=== PATIENT | female | born 1975 | race Caucasian/White ===

== ENCOUNTER → 2022-10-27 12:52 | Outpatient (BNVA) | payer OTHER, SELFPAY | PROVIDERS: PCP Family Medicine; Referring Provider Family Medicine; Visit Provider Surgery | DX: K42.9 Umbilical hernia without obstruction or gangrene (principal) | CPT/HCPCS: 99202 ==

== ENCOUNTER → 2022-11-03 12:55 | Outpatient (BNVA) | payer OTHER, SELFPAY | PROVIDERS: PCP Family Medicine; Visit Provider Internal Medicine Cardiovascular Disease | DX: Z01.810 Encounter for preprocedural cardiovascular examination (principal); R07.9 Chest pain, unspecified | CPT/HCPCS: 99202 ==

== ENCOUNTER → 2022-11-07 07:51 | Outpatient (REF) | payer OTHER, SELFPAY ==
--- NOTE | 2022-11-07 07:54 | CA_ITS ---
Acquisition Time: 2022-11-07 08:08:43 Total Exercise Time: 00:08:23 Test Indications: CP Medications: SEE H Protocol: MARY Max HR: 162 BPM 92% of Pred: 175 BPM Max BP: 150/088 mmHG Max Work Load: 10.1 METS Exercise stress test with exercise 8 min 23 sec of Mray protocol, achieving 91% MPHR, with fatigue and request to stop, with 3-4/10 chest pressure at baseline that changed to 5/10 with exercise then back to 3-4/10 in recovery, with isolated PACs, with normotensive response to exercise, with artifact during exercise, with borderline ST changes in recovery - can't exclude ischemia. Will ordrer stress echocardiogram for further evaluation. Test reviewed with Dr Spann. Referred By: Alek Fonseca Overread By: KATHIA GREENWOOD
== END ==
LOC: HO.CARD 07:51
PROVIDERS: PCP Family Medicine; Visit Provider Internal Medicine Cardiovascular Disease
DX: R07.9 Chest pain, unspecified (principal)
CPT/HCPCS: 93017

== ENCOUNTER → 2022-11-18 12:59 | Outpatient (REF) | payer OTHER, SELFPAY ==
--- NOTE | 2022-11-18 13:44 | CA_ITS ---
Transthoracic Echocardiogram Patient (Last, First, Middle): Freda Isaac, Gender: Female Date of : 1975 Age: 47 Procedure Date: 11/18/2022 Procedure Type: Transthoracic Echocardiogram Location: OP Height: 160.02 cm Weight: 81.65 kg BSA: 1.85 m2 Heart Rate: bpm BP: 122 / 60 mmHg Product Scientist: Referring MD: Alek Fonseca MD Symptoms: R06.02 - Shortness of breath Study Quality: Adequate ECG Rhythm: Sinus Conclusions: - Normal left ventricular size and systolic function. The visually estimated ejection fraction is between 55-60%. There is no evidence of regional wall motion abnormalities. Diastolic function is normal for age. Borderline increased LV wall thickness. - Normal right ventricular cavity size and systolic function. - No significant valvular or pericardial pathology. Findings Left Ventricle Normal left ventricular size and systolic function. The visually estimated ejection fraction is between 55-60%. There is no evidence of regional wall motion abnormalities. Diastolic function is normal for age. Borderline increased LV wall thickness. Right Ventricle Normal right ventricular cavity size and systolic function. Atria Both atria are normal in size. Aortic Valve There is a normal trileaflet aortic valve. There is no aortic valve stenosis. There is no aortic valve regurgitation. Mitral Valve The mitral valve appears normal. There is no mitral valve regurgitation. There is no mitral valve stenosis. Pulmonic Valve Normal pulmonic valve structure and function. There is trace pulmonic valve regurgitation. Tricuspid Valve Normal tricuspid valve structure and function. There is trace tricuspid valve regurgitation. Normal right atrial pressure. There is no evidence of pulmonary hypertension. Great Vessels All visible segments of the aorta are normal in size. The visualized portions of the pulmonary artery and branches are normal. Venous The inferior vena cava is normal in size and collapses greater than 50% with inspiration. Pericardium/Pleural There is no evidence of pericardial effusion. Prior Study Comparison No prior study available for comparison. Measurements 2D Linear Measurements IVSd: 0.87 0.6-0.9/0.6-1.0 cm LVIDd: 4.86 3.9-5.3/4.2-5.9 cm LVIDd Index: 2.63 2.4-3.2/2.2-3.1 cm/m2 LVIDs: 3.00 2.0-3.6 cm LVPWd: 0.91 0.7-1.1 cm Ao Root: 2.80 2.1-3.5 cm LA Diam: 3.30 2.7-3.8/3.0-4.0 cm LAIDs Index: 1.78 1.5-2.3 cm/m2 LV Mass: 185.08 67-162/88-224 g LV Mass Index: 100.04 43-95/49-115 g/m2 LVOT Diam: 2.00 3.0+(-)1.3 cm 2D Systolic Function EF 4C: 64.20 >55% EF 2C: 56.70 >55% EF BiP: 61.00 >55% Mitral Valve MV Pk E: 0.77 MV PK A: 0.51 MV Decel Time: 187.00 E/A: 1.50 E'Lateral: 14.70 E'Medial: 9.03 E/E' Med: 8.50 E/E' Lat: 5.20 PHT: 55.00 MVA PHT: 4.00 Decel [place]: 4.13 Aortic Valve AoV Pk Hank: 1.32 AoV Mn Hank: 0.89 AoV VTI: 0.30 AoV Pk Grad: 7.00 Aov Mn Grad: 4.00 [place] Cont.VTI: 2.56 LVOT LVOT Pk Hank: 1.16 LVOT Mn Hank: 0.67 LVOT VTI: 0.24 LVOT Pk Grad: 5.00 LVOT Mn Grad: 2.00 LVOT Diam: 2.00 LVOT Area: 3.14 Diastolic Function MV Pk E: 0.77 MV Pk A: 0.51 E/A: 1.50 E'Medial: 9.03 E/E' Med: 8.50 E' Laterial: 14.70 E/E' Lat: 5.20 Right Ventricle TAPSE (mm): 27.00 TVS' Hank: 12.00 Tricuspid Valve TR Pk Hank: 2.06 TR Pk Grad: 17.00 RA Press: 3.00 RVSP: 20.00 Great Vessels Aorta Ao Root-2D: 2.80 2.0-3.7 cm Ao Asc: 2.70 2.1-3.4 cm Pulmonary Valve PV Pk Hank: 0.92 Peak PV Grad: 3.00 Updated in Other Vendor System with Status of Final Misael Elliott MD electronically signed on 11/20/2022 1:54:20 PM with status of Final
== END ==
LOC: HO.CARD 12:59
PROVIDERS: PCP Family Medicine; Visit Provider Internal Medicine Cardiovascular Disease
DX: R06.02 Shortness of breath (principal)
CPT/HCPCS: 93306

== ENCOUNTER 2022-11-20 21:01 | Emergency (ER) | payer OTHER, SELFPAY ==
--- NOTE | ~2022-11-20 | XR_ITS ---
EXAMINATION: XR CHEST CLINICAL INFORMATION: Chest pain. COMPARISON: None available. TECHNIQUE: Frontal view of the chest was obtained. FINDINGS: The lungs are well-expanded and clear of acute process. The heart size and pulmonary vascularity is normal. No gross bony abnormality seen. XR/XR chest 1V IMPRESSION: Unremarkable chest examination.
[2022-11-20 21:04] VITALS: BP 152/71; PULSE 82; RESP 18; TEMP 36.1; O2SAT 99; BMI 31.5
--- NOTE | 2022-11-20 21:06 | ECG_ITS ---
Test Reason : chest pain Blood Pressure : / mmHG Vent. Rate : 074 BPM Atrial Rate : 074 BPM P-R Int : 156 ms QRS Dur : 078 ms QT Int : 390 ms P-R-T Axes : 037 034 029 degrees QTc Int : 432 ms Normal sinus rhythm Normal ECG No previous ECGs available Referred By: Generic ED Physician Electronically Signed By:Misael Elliott
[2022-11-20 21:50] LABS: Anion Gap 13 (12-20); Blood Urea Nitrogen 9 mg/dL (9-16); Calcium 9.1 mg/dL (8.4-10.2); Carbon Dioxide 24 mmol/L (22-29); Chloride 106 mmol/L (96-108); Creatinine Clr Calc Pharmacy 105.1; Estimated Glomerular Filt Rate > 60; Glucose Random 99 mg/dL (60-115); Potassium 3.7 mmol/L (3.3-5.1); Sodium 139 mmol/L (135-145)
[2022-11-20 23:30] VITALS: BP 130/87; PULSE 81; RESP 12; O2SAT 99
--- NOTE | 2022-11-20 23:32 | ED.CHESTPAIN ---
HPI - Chest Pain General Chief Complaint: Chest Pain Stated Complaint: chest pain Time Seen by Provider: 11/20/22 23:16 Source: patient and family Mode of arrival: ambulatory Limitations: no limitations History of Present Illness HPI narrative: This is a 47-year-old female came in for evaluation of chest pain. 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 No shortness of breath, no coughing, no fever, no chills, no recent travel, no lower extremity swelling, patient was seen at [facility] ER on 10/13 had a negative CTA for pulmonary embolism or any other intrathoracic pathology. Related Data Home Medications Medication Instructions Recorded Confirmed omeprazole 20 mg capsule,delayed 20 mg PO DAILY 10/27/22 11/03/22 release multivitamin (Daily Multi-Vitamin 1 tab PO DAILY 11/03/22 11/03/22 tablet) Allergies Allergy/AdvReac Type Severity Reaction Status Date / Time Seasonal Allergies Allergy Mild Unknown Verified 10/27/22 13:10 Review of Systems Review of Systems: All other systems are reviewed and are negative Constitutional: Reports as per HPI and Reports no additional constitutional complaints Eyes: Reports as per HPI and Reports no additional eye complaints Reports system reviewed and no additional complaints, except as documented Cardiovascular: Reports as per HPI and Reports no additional cardiovascular complaints Respiratory: Reports as per HPI and Reports no additional respiratory complaints Gastrointestinal: Reports as per HPI and Reports no additional gastrointestinal complaints Genitourinary: Reports no additional female genitourinary complaints Musculoskeletal: Reports no additional musculoskeletal complaints Skin/Breast: Reports system reviewed and no additional complaints, except as docu Psychiatric: Reports no additional psychiatric complaints Endocrine: Reports no additional endocrine complaints Hematologic/Lymphatic: Reports no additional hematologic/lymphatic complaints Allergic/Immunologic: Reports no additional allergic/immunologic complaints Reports system reviewed and no additional complaints, except as documented and Reports Abnormal speech present [facility] Family History Family History Maternal Aunt Ovarian cancer Father CAD (coronary artery disease) Social History Social History Alcohol intake: current Alcohol intake frequency: holidays/special occasions only Patient Tobacco Use Status: Never used Tobacco Smoked in Last 30 Days: No Use of substances other than those prescribed or required for medical reasons: No Advance Directives: No Advance Directives Information Provided: No Patient : No Physical Exam Vital Signs: Vital Signs: Last Vital Signs Temp 97 F 11/20/22 21:04 Pulse 81 11/20/22 23:30 Resp 12 11/20/22 23:30 BP 130/87 11/20/22 23:30 Pulse Ox 99 11/20/22 23:30 O2 Del Method Room Air 11/20/22 23:30 BMI result Body Mass Index 31.5 Vital signs have been reviewed as appeared to be correct. Blood pressure normal. Heart rate normal. Respiration rate normal. Temperature normal. Oxygen saturation normal. Appearance: Alert. Oriented X3. No acute distress. Head: Normal external exam. Normocephalic. Atraumatic. No Stewart signs noted. No raccoon eyes noted Eyes: PERRLA. EOMI. Conjunctiva and sclera normal. Eyelids normal. ENT: TM's Normal. Pharynx normal. Uvula midline. Moist mucous membranes. No trismus noted. No drooling noted. No muffled voice noted. Neck: Normal inspection. Neck supple. FROM. No adenopathy. Thyroid Normal. No meningeal signs. No neck mass noted. CVS: Normal heart rate and rhythm. Heart sound normal. No murmurs noted. Pulses normal throughout. Respiratory: No respiratory distress. Painless inspiration. Breath sounds normal. No wheezes/rales/rhonchi noted. Reproducible chest wall tenderness to the left costochondral junction, no step-off, no deformity. No accessory muscle usage noted or decreased air movement noted. Abdomen: Soft and nontender. Bowel sounds normal in all 4 quadrants. No distention noted. No organomegaly noted. No visible injury noted. Back: No CVA tenderness. Full range of motion noted. Skin: Skin warm and dry. Normal skin color. Normal skin turgor. No rashes/lesions/lacerations noted. Extremities: No lower extremity edema. Extremities exhibit normal range of motion. Extremities nontender. Neuro: Oriented X 3. Cranial nerve exam: II-XII are grossly intact No motor deficit. No sensory deficit. Reflexes normal. Course Course Course Narrative: 47-year-old female history of chest pain for the past 2 months, patient in the process of Cardiology evaluation schedule for stress test and 3 days, had previous ED workup for chest pain which was unremarkable including CT of the chest at [facility] on 10/13/2022. For however presence of reproducible tenderness to the left costochondral margin making costochondritis is a favorable diagnosis. Reevaluation(s) Reevaluation #1: Patient has elevated D-dimer, patient is refusing CT angio of the chest to rule out pulmonary embolism risk and benefit were discussed with the patient not limited to but including , still leaving against medical advise patient was advised to return if chest pain is getting worse or developing any other new symptoms. Time: 02:42 Medical Decision Making Differential Diagnosis Differential Diagnoses: The differential diagnosis associated with the presentation includes (Pneumonia, pneumothorax, pulmonary embolism, ACS, rib fracture, chest wall pain, costochondritis, electrolyte abnormalities, severe anemia.) Admission/Observation Consideration of admission/observation: Escalation of care including admission/observation considered Lab Data MDM Lab Attestation statement: I reviewed the patient's lab results. 11/20/22 21:33 11/20/22 21:33 Labs: Lab Results 11/20/22 11/20/22 11/20/22 Range/Units 21:33 21:33 21:33 WBC 7.7 (4.8-10.8) X10*3/uL RBC 4.52 (4.20-5.50) X10*6/uL Hgb 11.5 L (12.0-16.0) g/dl Hct 36.0 L (37.0-47.0) % MCV 79.6 L (80.0-98.0) fL MCH 25.4 L (27.0-33.0) pg MCHC 31.9 (31.0-35.0) g/dl RDW 13.7 (11.0-16.0) % Plt Count 289 (160-400) X10*3/uL MPV 10.0 (9.4-12.3) fL Immature Gran % (Auto) 0.3 (0.0-0.4) % Neut % (Auto) 54.6 (45-73) % Lymph % (Auto) 32.1 (20-40) % [place] % (Auto) 10.8 (2-11) % Eos % (Auto) 1.9 (0-4) % Baso % (Auto) 0.3 (0-2) % Lymph # (Auto) 2.5 (1.2-4.9) X10*3/uL [place] # (Auto) 0.8 (0.1-1.2) X10*3/uL Eos # (Auto) 0.2 (0.0-0.4) X10*3/uL Baso # (Auto) 0.0 (0.0-0.2) X10*3/uL Abs Immat Gran (auto) 0.02 (0.00-0.03) X10*3/uL Absolute Neuts (auto) 4.2 (2.0-8.3) x10*3/uL Absolute Nucleated RBC 0.000 (0.0-0.012) X10*3/uL Nucleated RBC % (auto) 0.0 (0.0-0.2) /100WBC D-Dimer High Sensitivty NG/ML Sodium 139 (135-145) mmol/L Potassium 3.7 (3.3-5.1) mmol/L Chloride 106 (96-108) mmol/L Carbon Dioxide 24 (22-29) mmol/L Anion Gap 13 (12-20) BUN 9 (9-16) mg/dL Creatinine 0.68 (0.5-1.4) mg/dL Estim Creat Clear Calc 105.1 Estimated GFR > 60 Random Glucose 99 (60-115) mg/dL Calcium 9.1 (8.4-10.2) mg/dL Troponin I High Sens < 2.7 (<3.5-17.0) ng/L 11/21/22 11/21/22 Range/Units 00:34 00:34 WBC (4.8-10.8) X10*3/uL RBC (4.20-5.50) X10*6/uL Hgb (12.0-16.0) g/dl Hct (37.0-47.0) % MCV (80.0-98.0) fL MCH (27.0-33.0) pg MCHC (31.0-35.0) g/dl RDW (11.0-16.0) % Plt Count (160-400) X10*3/uL MPV (9.4-12.3) fL Immature Gran % (Auto) (0.0-0.4) % Neut % (Auto) (45-73) % Lymph % (Auto) (20-40) % [place] % (Auto) (2-11) % Eos % (Auto) (0-4) % Baso % (Auto) (0-2) % Lymph # (Auto) (1.2-4.9) X10*3/uL [place] # (Auto) (0.1-1.2) X10*3/uL Eos # (Auto) (0.0-0.4) X10*3/uL Baso # (Auto) (0.0-0.2) X10*3/uL Abs Immat Gran (auto) (0.00-0.03) X10*3/uL Absolute Neuts (auto) (2.0-8.3) x10*3/uL Absolute Nucleated RBC (0.0-0.012) X10*3/uL Nucleated RBC % (auto) (0.0-0.2) /100WBC D-Dimer High Sensitivty 2263 NG/ML Sodium (135-145) mmol/L Potassium (3.3-5.1) mmol/L Chloride (96-108) mmol/L Carbon Dioxide (22-29) mmol/L Anion Gap (12-20) BUN (9-16) mg/dL Creatinine (0.5-1.4) mg/dL Estim Creat Clear Calc Estimated GFR Random Glucose (60-115) mg/dL Calcium (8.4-10.2) mg/dL Troponin I High Sens < 2.7 (<3.5-17.0) ng/L Independent Interpretation I performed an independent interpretation of an: EKG (Normal sinus rhythm at 74 beats per minute, normal axis deviation, normal intervals, no ST-T changes.) and Plain X-Ray (Chest: No acute intrathoracic pathology.) Radiology Impression Discussion of test interpretation with radiology: I have reviewed the radiologist's reading. Scores Heart Score History: -0- slightly suspicious ECG: -0- normal Age: -0- < or = 45 Risk factory: -0- no risk factors known Troponin: -0- < or = normal limit Score: 0 Risk: 1.7% Discharge Plan Discharge Clinical Impression: Chest pain, D-dimer, elevated Patient Disposition: Left Against Medical Advice Instructions: Costochondritis (ED) Prescriptions: No Action omeprazole 20 mg capsule,delayed release(DR/EC) 20 mg PO DAILY multivitamin [Daily Multi-Vitamin] Tablet 1 tab PO DAILY Referrals: Long Baker MD [Primary Care Provider] - Alek Fonseca MD [Physician] -
[2022-11-20 23:35] VITALS: PULSE 89
--- NOTE | 2022-11-20 23:38 | PC.NURSE ---
pt reported she was seen by her motel front desk clerk on monday, currently been seen for recurring left upper chest pain. pt also reported she failed her stress test
--- NOTE | 2022-11-21 00:36 | MHC.EDTECH ---
labs drawn VSS
[2022-11-21 01:09] LABS: Troponin-I High Sensitivity < 2.7 ng/L (<3.5-17.0)
--- NOTE | 2022-11-21 02:30 | PC.NURSE ---
pt declined iv abdirahman wants to go home. Dr. cardenas
--- NOTE | 2022-11-21 03:10 | PC.NURSE ---
pt d/c, denies any increasing chest pain, encouraged to discuss lab values with pcp
== END 2022-11-21 03:09 | disposition left against medical advice (07) ==
PROVIDERS: Emergency Provider Emergency Medicine; PCP Family Medicine
DX: R07.9 Chest pain, unspecified (principal); R79.1 Abnormal coagulation profile
CPT/HCPCS: 36415; 71045; 80048; 84484; 85025; 85379; 93005; 99283; 99284

== ENCOUNTER → 2022-11-24 10:56 | Outpatient (REF) | payer OTHER, SELFPAY ==
--- NOTE | 2022-11-24 10:57 | CA_ITS ---
Acquisition Time: 2022-11-24 11:27:34 Total Exercise Time: 00:09:15 Test Indications: CHEST PAIN Medications: Protocol: MARY Max HR: 173 BPM 98% of Pred: 175 BPM Max BP: 156/064 mmHG Max Work Load: 10.5 METS Exercise stress test with exercise 9 min 15 sec of Mary protocol achieving 100% MPHR, with report of mild tightness in left chest region that resolved quickly in recovery, with isolated PACs, with normotensive response to exercise, with EKG changes that meet criteria for ischemia: inferior/ lateral leads that improves in recovery. Echo images obtained by tech at rest and immediately post peak exercise. Definity contrast used, Test reviewed with Dr Spann. Referred By: Ludivina Chappell Overread By: LUDIVINA CHAPPELL
== END ==
LOC: HO.CARD 10:56
PROVIDERS: PCP Family Medicine; Visit Provider Nurse Practitioner Family
DX: R07.9 Chest pain, unspecified (principal); R06.02 Shortness of breath; R94.39 Abnormal result of other cardiovascular function study
CPT/HCPCS: 93350; Q9957

== ENCOUNTER 2022-12-01 09:01 | Outpatient (AMB) | payer OTHER, SELFPAY ==
--- NOTE | 2022-12-01 09:09 | A.OFFVIS_ITS ---
Intake Vital Signs 12/01/22 09:10 Height 5 ft 3 in Weight 178 lb 9.191 oz BMI 31.6 BP 130/80 Blood Pressure Location Lt brachial Position Sitting Pulse 65 Pulse Oximetry (%) 98 Intake Visit Reasons: 4 week follow up Intake Note: 4 week f/u Workers Compensation Consultant Required: No Allergies Seasonal Allergies Allergy (Mild, Verified 12/01/22 09:22) Unknown Medication List - Last Reconciled 12/01/22 by CY Saunders multivitamin (Daily Multi-Vitamin tablet) 1 tab PO DAILY omeprazole 20 mg PO DAILY HPI 4 week follow up HPI Details Freda is a 47-year-old female with past medical history of obesity, anxiety who recently reported chest discomfort and underwent an echocardiogram and stress test and now presents for follow-up. Today she reports that her prior chest discomfort has resolved. She tells me she had been getting it for a few weeks but it is no longer present. She denies shortness of breath, dizziness, presyncope, syncope, PND, orthopnea or edema. She has been trying to increase her physical activity by going to the gym which she tolerates without symptoms. She does report high stress with her daughter being ill at home. She now feels that stress may be contributing to her symptoms. She is also fearful as her father had fatal KS in his 60s. [facility] Family History Maternal Aunt Ovarian cancer Father CAD (coronary artery disease) Social History Alcohol intake: current Alcohol intake frequency: holidays/special occasions only Patient Tobacco Use Status: Never used Tobacco Review of Systems Const All systems reviewed & are unremarkable except as noted in HPI and below ENT Reports dizziness Card Denies chest pain, Denies chest pain at rest, Denies chest pain with activity, Denies rapid heart rate, Denies pedal edema, Denies edema, Denies leg edema, Denies lightheadedness, Denies palpitations, Denies dyspnea, Denies dyspnea on exertion and Denies orthopnea Resp Denies cough, Denies dyspnea and Denies dyspnea on exertion GI Denies hematochezia and Denies change in stool character Musc Denies abnormal gait, Reports limited range of motion, Reports muscle cramps, Denies muscle weakness, Denies numbness, Denies radiating pain into limb, Denies stiffness and Denies tingling Neuro Denies abnormal gait, Reports dizziness, Denies numbness and Denies tingling Endo Denies palpitations Physical Exam Vital Signs: Last Vital Signs Pulse 65 12/01/22 09:10 BP 130/80 12/01/22 09:10 Pulse Ox 98 12/01/22 09:10 BMI result Body Mass Index 31.6 Const General: cooperative, healthy appearing, comfortable and no acute distress Orientation/consciousness: patient oriented x3 Neck Neck: Yes normal visual inspection Resp Effort & Inspection: normal respiratory effort Auscultation: clear to auscultation bilaterally, no crackles, no rales, no rhonchi and no wheezes Cardio Jugular venous distension: no JVD Rate: regular rate Rhythm: regular rhythm Heart sounds: S1 normal heart sound present, S2 normal heart sound present, no gallops, no murmurs and no rubs Skin General skin exam: no rashes or lesions noted Neuro General: patient oriented x3 Extrem General: Yes normal to inspection Psych Appearance: grossly normal Mental Status: mental status grossly normal Speech and movement: Normal speech and movement present Office Procedures EKG Details: today, read by me, normal sinus rhythm, no acute ST or T-wave abnormalities, rate 65, QTC 426 milliseconds [id number], Complete Assessment & Plan Assessment & Plan (1) Chest pain: Code(s): R07.9 - Chest pain, unspecified Plan: Prior reports of chest discomfort which have since resolved. She had previous ER evaluation without cardiac findings. EKG done on 11/20/2022 shows sinus rhythm with no acute ST or T-wave abnormalities, rate 74. She had an echocardiogram on 11/18/2021 showing EF 55-60%, no regional wall motion abnormalities, normal RV. An exercise stress echo test was done on 11/24/2022 where she exercise 9 minutes 15 seconds with brief mild chest tightness, with EKG changes however echo images showed no echo evidence of ischemia. Today she reports feeling well. She admits to high anxiety and has been working on stress and anxiety reduction. She is going to the gym and uses the treadmill. She has no exertional chest discomfort. Test results discussed. Spent time reviewing signs and symptoms of true angina with her. Emergency care if ever needed for symptoms. She prefers to have a cardiology follow-up in place. Will arrange for follow-up in 1 year, sooner if needed. (2) Preoperative cardiovascular examination: Code(s): Z01.810 - Encounter for preprocedural cardiovascular examination Plan: preop for umbilical hernia repair in the near future. No date yet. Patient is low cardiac risk to proceed as planned. (3) Abnormal stress ECG with treadmill: Code(s): R94.39 - Abnormal result of other cardiovascular function study Plan: on recent stress echo Abnormal EKGs noted during exercise however echo images normal, no ischemic findings. EKG changes false-positive. (4) Anxiety: Code(s): F41.9 - Anxiety disorder, unspecified Coding Level of Care Code Est Pt Level 4 (20823) Diagnoses Chest pain R07.9 Preoperative cardiovascular examination Z01.810 Abnormal stress ECG with treadmill R94.39 Anxiety F41.9 CPT Codes EKG - CPT: [id number], Complete ([id number]) Time Spent (min) 26 Comment chart review, documentation, interview, assessment
[2022-12-01 09:10] VITALS: BP 130/80; PULSE 65; O2SAT 98; BMI 31.6
== END 2022-12-01 09:44 | disposition home or self-care (01) ==
PROVIDERS: PCP Family Medicine; Visit Provider Nurse Practitioner Family
DX: R07.9 Chest pain, unspecified (principal); Z01.810 Encounter for preprocedural cardiovascular examination; R94.39 Abnormal result of other cardiovascular function study; F41.9 Anxiety disorder, unspecified
CPT/HCPCS: 93010; 99214

== ENCOUNTER → 2022-12-01 09:01 | Outpatient (BNVA) | payer OTHER, SELFPAY | PROVIDERS: PCP Family Medicine; Visit Provider Nurse Practitioner Family | DX: Z01.810 Encounter for preprocedural cardiovascular examination (principal); R07.9 Chest pain, unspecified; R94.39 Abnormal result of other cardiovascular function study; F41.9 Anxiety disorder, unspecified | CPT/HCPCS: 93005; 99212 ==

== ENCOUNTER 2022-12-19 06:07 | Day surgery (SDC) | payer OTHER, SELFPAY ==
[2022-12-14 10:27] VITALS: BMI 31.7
--- NOTE | 2022-12-16 09:28 | P.CONAN_ITS ---
HPI - Anesthesia Eval Consult details Narrative: 47yo F for Hernia Repair Umbilical with mesh Recent w/u for CP was negative. Stress reduction techniques have resolved CP. PMFSH Active Problems Active Problems: All Active Problems (Updated 12/14/22 @ 10:27 by Mary Stephens RN) Umbilical hernia (Acute) Chest pain (Acute) SOB (shortness of breath) (Acute) Preoperative cardiovascular examination (Acute) Abnormal stress ECG with treadmill (Acute) Anxiety (Acute) Past Medical History Medical History (Updated 12/14/22 @ 10:27 by Mary Stephens RN) Anxiety Chest pain Family History Family History Maternal Aunt Ovarian cancer Father CAD (coronary artery disease) Social History Social History Alcohol intake: current Alcohol intake frequency: holidays/special occasions o nly Patient Tobacco Use Status: Never used Tobacco Meds Allergies Allergy/AdvReac Type Severity Reaction Status Date / Time Seasonal Allergies Allergy Mild Unknown Verified 12/01/22 09:22 Home Medications Medication Instructions Recorded Confirmed Last Taken Type omeprazole 20 mg capsule,delayed 20 mg PO DAILY 10/27/22 12/14/22 Unknown History release multivitamin (Daily Multi-Vitamin 1 tab PO DAILY 11/03/22 12/14/22 Unknown History tablet) Exam Exam Date and Time: December 16, 2022 0928 Height,Weight and Vital Signs: Height 5 ft 3 in Weight 81.193 kg Pertinent Lab Results Pertinent Lab Results: Laboratory Tests 11/20/22 11/20/22 21:33 21:33 WBC 7.7 Hgb 11.5 L Hct 36.0 L Plt Count 289 Sodium 139 Potassium 3.7 Chloride 106 Carbon Dioxide 24 BUN 9 Creatinine 0.68 Narrative Narrative: Per 11/2022 cardiac office visit: EKG done on 11/20/2022 shows sinus rhythm with no acute ST or T-wave abnormalities, rate 74.? She had an echocardiogram on 11/18/2021 showing EF 55-60%, no regional wall motion abnormalities, normal RV.? An exercise? stress echo test was done on 11/24/2022 where she exercise 9 minutes 15 seconds with brief mild chest tightness, with EKG changes however echo images showed no echo evidence of ischemia.? Assessment and Plan Assessment Anesthesia Assessment: Chart Reviewed
[2022-12-19] VITALS (7 sets, daily range): BP systolic 103–149; BP diastolic 67–79; PULSE 68–93; RESP 16–20; TEMP 36.1–36.3; O2SAT 97–100
[2022-12-19 06:45] LABS: UPreg QC Valid YES; Urine Pregnancy NEGATIVE (NEGATIVE)
[2022-12-19] MEDS: Lactated Ringers 1,000 ML 100 ML IVCONT (07:09)
--- NOTE | 2022-12-19 07:20 | HO.ANESPROP2 ---
[facility] Active Problems Active Problems: All Active Problems (Updated 12/14/22 @ 10:27 by Mary Stephens RN) Umbilical hernia (Acute) Chest pain (Acute) SOB (shortness of breath) (Acute) Preoperative cardiovascular examination (Acute) Abnormal stress ECG with treadmill (Acute) Anxiety (Acute) Past Medical History Medical History (Updated 12/14/22 @ 10:27 by Mary Stephens RN) Anxiety Chest pain Family History Family History Maternal Aunt Ovarian cancer Father CAD (coronary artery disease) Family history of problems with anesthesia: No Surgical History History of Problems with Anesthesia: No Social History Social History Alcohol intake: current Alcohol intake frequency: holidays/special occasions only Patient Tobacco Use Status: Never used Tobacco Second Hand Smoke Exposure: No Use of substances other than those prescribed or required for medical reasons: No Are you DNR?: No Advance Directives: No Advance Directives Information Provided: Yes Advance Directives on File: No Meds Allergies Allergy/AdvReac Type Severity Reaction Status Date / Time Seasonal Allergies Allergy Mild Unknown Verified 12/01/22 09:22 Active Medications: Current Medications Lactated Ringer's (Lr) 1,000 mls @ 100 mls/hr IVCONT .Q10H AUGUSTINE Last Admin: 12/19/22 07:09 Dose: 100 mls/hr Home Medications Medication Instructions Recorded Confirmed Last Taken Type omeprazole 20 mg capsule,delayed 20 mg PO DAILY 10/27/22 12/14/22 Unknown History release multivitamin (Daily Multi-Vitamin 1 tab PO DAILY 11/03/22 12/14/22 Unknown History tablet) Exam Exam Date and Time: December 19, 2022 0720 Height,Weight and Vital Signs: Height 5 ft 3 in Weight 81.193 kg Last Vital Signs Temp 97.3 F 12/19/22 06:56 Pulse 76 12/19/22 06:56 Resp 16 12/19/22 06:56 BP 149/77 H 12/19/22 06:56 Pulse Ox 98 12/19/22 06:56 O2 Del Method Room Air 12/19/22 06:56 Pertinent Lab Results Pertinent Lab Results: Laboratory Tests 12/19/22 06:34 Urine Test NEGATIVE Airway Mallampati Class: IV TM Dist: >3cm Loose/Missing/Broken Teeth: No Heart: rrr Lungs: clear Assessment and Plan Final Anesthetic Review Family History of Problems with Anesthesia: No History of Problems with Anesthesia: No NPO: Yes ASA Class: II Final Preanesthetic Review: No Changes in Pt Med Stat, Meds/Allgs Chart Reviewed, Consent Obtained/Reviewed and Anes Risks/Benef Reviewed Patient Risk: Low Procedure Risk: Low Anesthetic Plan Anesthetic Plan: GA Disposition: Standard PACU
--- NOTE | 2022-12-19 07:38 | W.PM.OPN ---
Operative Note Operative Note Date of Service: 12/19/22 Narrative: Preoperative diagnosis: Umbilical hernia Postoperative diagnosis: Same Procedure: Repair of umbilical hernia with mesh Surgeon: Kilo Miguel MD Product Responsibility Liaison: Jami Ratliff PA-C Anesthesia: General LMA Indications for procedure: 47-year-old female presenting with a palpable lump below the umbilicus which increases in size with lifting and straining and causes some discomfort. On examination patient has an umbilical hernia with defect measuring approximately 4.5 cm Operative findings: Umbilical hernia 4.5 cm in diameter Specimen: none Estimated blood loss: Less than 2 mL Complications: None Procedure details: Patient was brought to the OR placed in a supine position. After administering general anesthesia the patient's abdomen was prepped with ChloraPrep and draped in a sterile fashion. A surgical time-out was called the consent confirmed. Patient received preoperative antibiotics and Venodyne boots were in place. Local anesthesia consisting of 0.5% Sensorcaine with epinephrine was infiltrated along the inferior umbilicus and a curvilinear fashion transversely. Incision was then made with a scalpel carried out through subcutaneous tissue. A large fatty hernia was identified. Hernia sac was dissected circumferentially down to the fascial edge. The fascial edge was then opened slightly to allow reduction of the hernia sac. A portion of the hernia sac was excised and sent to pathology for further examination. The remaining hernia sac was then closed using a 0 Polysorb suture. The preperitoneal space was then created using combination of blunt sharp dissection. Hemostasis was assured using electrocautery. A 4.3 cm round Ventralex mesh was then obtained. This was deployed into the preperitoneal space and secured in 4 quadrants using a 1 Tycron suture. Fascia was then closed over the mesh incorporating the mesh in the closure again using the 1 Tycron suture. This was on both [id number] sutures. Wounds were irrigated with saline solution and suctioned dry. The umbilical skin was then attached to the fascial edge using a 3-0 Polysorb suture. Dermis was then reapproximated using interrupted 3-0 Polysorb sutures. Skin was closed using a running subcuticular 4-0 Polysorb suture. Steri-Strips, 2 x 2 gauze and Tegaderm were then applied. The patient tolerated the procedure well. Sponge, instrument, and needle counts reported as correct. The patient was transferred to PACU in stable condition.
[2022-12-19] MEDS: Acetaminophen 325 MG TABLET 975 MG PO (09:13)
[2022-12-19] MEDS: Ondansetron ODT 4 MG TAB.RAPDIS TRANSLINGU (09:54)
== END 2022-12-19 09:55 | disposition home or self-care (01) ==
PROVIDERS: Nurse Practitioner; PCP Family Medicine; Visit Provider Surgery
PROC: (CPT 49593; principal; 2022-12-19 07:30)
DX: K42.9 Umbilical hernia without obstruction or gangrene (principal); J30.2 Other seasonal allergic rhinitis; F41.1 Generalized anxiety disorder; R07.9 Chest pain, unspecified; R94.39 Abnormal result of other cardiovascular function study; Z82.41 Family history of sudden cardiac death; Z82.49 Family history of ischemic heart disease and other diseases of the circulatory system; E66.9 Obesity, unspecified; Z68.31 Body mass index [BMI] 31.0-31.9, adult; Z79.899 Other long term (current) drug therapy
CPT/HCPCS: 49593; 81025; 88302; C1781; C9088; J0690; J1100; J2250; J2405; J3010

== ENCOUNTER → 2022-12-19 06:07 | Outpatient (BNV) | payer OTHER, SELFPAY | PROVIDERS: PCP Family Medicine; Visit Provider Surgery | DX: K42.9 Umbilical hernia without obstruction or gangrene (principal) | CPT/HCPCS: 49594 ==

== ENCOUNTER 2022-12-29 12:53 | Outpatient (AMB) | payer OTHER, SELFPAY ==
--- NOTE | 2022-12-29 12:56 | MHC.OFFVIS ---
Intake Vital Signs 12/29/22 13:07 Height 5 ft 3 in Weight 182 lb 2 oz BMI 32.3 BP 130/79 Blood Pressure Location Lt brachial Position Sitting Pulse 80 Intake Visit Reasons: S/P umbilical hernia w/mesh Intake Note: Patient is seen in office for post op assessment post umbilical hernia repair. Pt c/o: denies any concerns Pulmonologist/Intensivist Required: No Accompanied by: Other Relationship Allergies Seasonal Allergies Allergy (Mild, Verified 12/29/22 13:07) Unknown Medication List - Last Reconciled 12/29/22 by Kilo Miguel MD multivitamin (Daily Multi-Vitamin tablet) 1 tab PO DAILY omeprazole 20 mg PO DAILY oxycodone 5 mg PO Q6H PRN HPI HPI Comments History of Present Illness Details Patient returns 1 week following repair of an umbilical hernia with mesh. She reports some bruising and burning pain along the edges of the repair. She denies nausea, vomiting, fever, chills, diarrhea or constipation. PFSH Medical History Anxiety Chest pain Surgical History H/O umbilical hernia repair (12/19/22) Family History Maternal Aunt Ovarian cancer Father CAD (coronary artery disease) Social History Alcohol intake: current Alcohol intake frequency: holidays/special occasions only Patient Tobacco Use Status: Never used Tobacco Second Hand Smoke Exposure: No Physical Exam Const General: no acute distress and well developed Nutritional Appearance: well nourished Limitations: no limitations Resp Effort & Inspection: normal respiratory effort GI Other: Well-healed incision in the umbilicus with a small area of ecchymosis below this. Wounds are clean, dry, and intact. No evidence of hernia recurrence. No evidence of infection. Skin Other: Warm, dry, no rash Extrem Other: No edema Assessment & Plan Assessment & Plan (1) Umbilical hernia: Code(s): K42.9 - Umbilical hernia without obstruction or gangrene Plan Status post repair of an umbilical hernia 1 week ago. Wounds are clean, dry, and intact. Patient should continue to avoid lifting greater than 10 lb for the next 4 weeks. She should return in 4 weeks for wound check. Coding Level of Care Code Global (60262) Diagnoses Umbilical hernia K42.9
[2022-12-29 13:07] VITALS: BP 130/79; PULSE 80; BMI 32.3
== END 2022-12-29 13:25 | disposition home or self-care (01) ==
PROVIDERS: PCP Family Medicine; Visit Provider Surgery
DX: K42.9 Umbilical hernia without obstruction or gangrene (principal)
CPT/HCPCS: 99499

== ENCOUNTER → 2022-12-29 12:53 | Outpatient (BNVA) | payer OTHER, SELFPAY | PROVIDERS: PCP Family Medicine; Visit Provider Surgery ==

== ENCOUNTER 2023-01-31 12:58 | Outpatient (AMB) | payer OTHER, SELFPAY ==
--- NOTE | 2023-01-31 13:01 | MHC.OFFVIS ---
Intake Vital Signs 01/31/23 13:10 Height 5 ft 3 in Weight 184 lb 4 oz BMI 32.6 BP 143/84 H Blood Pressure Location Lt brachial Position Sitting Pulse 84 Intake Visit Reasons: 1 mth follow up umbilical hernia Intake Note: Patient is seen in office for one month follow up visit, post umbilical hernia repair. Patient c/o: admit to hard to the touch on b/l side of the abdomen, pressure specially when laying on her side Shell Reprint Operator Required: No Accompanied by: Self / Same As Patient Allergies Seasonal Allergies Allergy (Mild, Verified 01/31/23 13:01) Unknown Medication List - Last Reconciled 01/31/23 by Kilo Miguel MD multivitamin (Daily Multi-Vitamin tablet) 1 tab PO DAILY omeprazole 20 mg PO DAILY HPI HPI Comments History of Present Illness Details 47-year-old female returning 1 month following repair of an umbilical hernia. She notes some hardness extending up and down in the midline abdomen and on either side. She feels her abdomen should when she lays on her left side in bed. She denies nausea, vomiting, fever, chills, diarrhea or constipation. She recently started iron supplements. She denies any significant pain at the umbilical incision. [facility] Medical History Anxiety Chest pain Surgical History H/O umbilical hernia repair (12/19/22) Family History Maternal Aunt Ovarian cancer Father CAD (coronary artery disease) Social History Alcohol intake: current Alcohol intake frequency: holidays/special occasions only Patient Tobacco Use Status: Never used Tobacco Second Hand Smoke Exposure: No Physical Exam Const General: no acute distress Nutritional Appearance: well nourished Orientation/consciousness: patient oriented x3 Limitations: no limitations Resp Effort & Inspection: normal respiratory effort GI Other: Abdominal incision and periumbilical region is clean, dry, and intact. There is a normal healing ridge surrounding the incision. No hernias noted with Valsalva maneuvers. Normal muscle tone noted in the abdominal wall. No palpable masses appreciated. Neuro General: patient oriented x3 Extrem General: Yes normal to inspection Assessment & Plan Assessment & Plan (1) Umbilical hernia: Code(s): K42.9 - Umbilical hernia without obstruction or gangrene Qualifiers: Obstruction and gangrene presence: without obstruction or gangrene Qualified Code(s): K42.9 - Umbilical hernia without obstruction or gangrene Plan Patient returns 1 month following repair of an umbilical hernia with mesh. She tolerated the procedure well the wounds are well healed. She may resume normal activity without restriction and should follow up as needed. Coding Level of Care Code Global (71868) Diagnoses Umbilical hernia without obstruction and without gangrene K42.9 Obstruction and gangrene presence: without obstruction or gangrene
[2023-01-31 13:10] VITALS: BP 143/84; PULSE 84; BMI 32.6
== END 2023-01-31 13:26 | disposition home or self-care (01) ==
PROVIDERS: PCP Family Medicine; Visit Provider Surgery
DX: K42.9 Umbilical hernia without obstruction or gangrene (principal)
CPT/HCPCS: 99213

== ENCOUNTER → 2023-01-31 12:58 | Outpatient (BNVA) | payer OTHER, SELFPAY | PROVIDERS: PCP Family Medicine; Visit Provider Surgery | DX: Z09 Encounter for follow-up examination after completed treatment for conditions other than malignant neoplasm (principal); Z87.19 Personal history of other diseases of the digestive system | CPT/HCPCS: 99212 ==

== ENCOUNTER 2023-05-12 08:16 | Day surgery (SDC) | payer OTHER, SELFPAY ==
[2023-05-10 13:49] VITALS: BMI 32.6
--- NOTE | 2023-05-11 09:49 | P.CONAN_ITS ---
Documented by User: Eryn Daniels NP 05/11/23 09:51 HPI - Anesthesia Eval Consult details Narrative: 47yo F for Upper Endoscopy and Colonoscopy s/p umbilical hernia 12/2022 with GA-LMA 4 PMFSH Active Problems Active Problems: All Active Problems (Updated 03/15/23 @ 11:23 by Kim Torres) Anxiety (Acute) Abnormal stress ECG with treadmill (Acute) Preoperative cardiovascular examination (Acute) SOB (shortness of breath) (Acute) Chest pain (Acute) Umbilical hernia (Acute) Past Medical History Medical History Chest pain Anxiety Family History Family History Maternal Aunt Ovarian cancer Father CAD (coronary artery disease) Family history of problems with anesthesia: No Surgical History Surgical History H/O umbilical hernia repair (12/19/22) History of Problems with Anesthesia: No Social History Social History Alcohol intake: current Alcohol intake frequency: holidays/special occasions only Patient Tobacco Use Status: Former Tobacco user Tobacco use type: Cigarette Years Smoked: 3 Smoked in Last 30 Days: No Second Hand Smoke Exposure: No Use of substances other than those prescribed or required for medical reasons: No Are you DNR?: No Advance Directives: No Advance Directives Information Provided: Yes Meds Allergies Allergy/AdvReac Type Severity Reaction Status Date / Time Seasonal Allergies Allergy Mild Unknown Verified 05/12/23 08:41 Home Medications Medication Instructions Recorded Confirmed Last Taken Type omeprazole 20 mg capsule,delayed 20 mg PO DAILY 10/27/22 05/12/23 Unknown History release multivitamin (Daily Multi-Vitamin 1 tab PO DAILY 11/03/22 05/12/23 Unknown History tablet) ferrous sulfate 325 mg (65 mg 325 mg PO DAILY 05/10/23 05/12/23 05/03/23 History iron) tablet Exam Height,Weight and Vital Signs: Height 5 ft 3 in Weight 83.461 kg Pertinent Lab Results Pertinent Lab Results: Laboratory Tests 11/20/22 21:33 WBC 7.7 Hgb 11.5 L Hct 36.0 L Plt Count 289 Sodium 139 Potassium 3.7 Chloride 106 Carbon Dioxide 24 BUN 9 Creatinine 0.68 Assessment and Plan Assessment Anesthesia Assessment: Chart Reviewed Final Anesthetic Review Family History of Problems with Anesthesia: No History of Problems with Anesthesia: No Documented by User: Yancy Roa MD 05/12/23 09:20 [facility] Active Problems Active Problems: All Active Problems (Updated 05/12/23 @ 11:23 by Yancy Roa MD) Anxiety (Acute) Abnormal stress ECG with treadmill (Acute) Preoperative cardiovascular examination (Acute) SOB (shortness of breath) (Acute) Chest pain (Acute). Had cardiac w/u with abnormal stress test response but thought to be false positive. Assessed as low risk for cardiac complications Umbilical hernia (Acute) Past Medical History Medical History Chest pain Anxiety Family History Family History Maternal Aunt Ovarian cancer Father CAD (coronary artery disease) Surgical History Surgical History H/O umbilical hernia repair (12/19/22) Social History Social History Alcohol intake: current Alcohol intake frequency: holidays/special occasions only Patient Tobacco Use Status: Former Tobacco user Tobacco use type: Cigarette Years Smoked: 3 Smoked in Last 30 Days: No Second Hand Smoke Exposure: No Use of substances other than those prescribed or required for medical reasons: No Are you DNR?: No Advance Directives: No Advance Directives Information Provided: Yes Meds Allergies Allergy/AdvReac Type Severity Reaction Status Date / Time Seasonal Allergies Allergy Mild Unknown Verified 05/12/23 08:41 Home Medications Medication Instructions Recorded Confirmed Last Taken Type omeprazole 20 mg capsule,delayed 20 mg PO DAILY 10/27/22 05/12/23 Unknown History release multivitamin (Daily Multi-Vitamin 1 tab PO DAILY 11/03/22 05/12/23 Unknown History tablet) ferrous sulfate 325 mg (65 mg 325 mg PO DAILY 05/10/23 05/12/23 05/03/23 History iron) tablet Exam Height,Weight and Vital Signs: Height 5 ft 3 in Weight 83.461 kg Vital Signs Temp Pulse Resp BP Pulse Ox O2 Del Method 05/12/23 08:42 98.1 F 95 16 141/84 H 98 Room Air Pertinent Lab Results Pertinent Lab Results: Laboratory Tests 11/20/22 21:33 WBC 7.7 Hgb 11.5 L Hct 36.0 L Plt Count 289 Sodium 139 Potassium 3.7 Chloride 106 Carbon Dioxide 24 BUN 9 Creatinine 0.68 Lab Results 05/12/23 Range/Units 08:33 Urine Test NEGATIVE (NEGATIVE) Airway Mallampati Class: II TM Dist: >3cm Neck ROM: Full Loose/Missing/Broken Teeth: Yes (Many broken. Some missing. No loose teeth) Heart: RRR Lungs: CTAB Assessment and Plan Assessment Anesthesia Assessment: Anesthesia Plan Discussed Final Anesthetic Review NPO: Yes ASA Class: II Final Preanesthetic Review: No Changes in Pt Med Stat, Meds/Allgs Chart Reviewed, Consent Obtained/Reviewed and Anes Risks/Benef Reviewed Patient Risk: Intermediate Procedure Risk: Low Assessment/Block/Sedation in SS: Assess/Block/Sedation-SS Anesthetic Plan Anesthetic Plan: MAC: Disposition: Standard PACU
[2023-05-12 08:42] VITALS: BP 141/84; PULSE 95; RESP 16; TEMP 36.7; O2SAT 98; BMI 32.7
[2023-05-12 08:42] LABS: UPreg QC Valid YES; Urine Pregnancy NEGATIVE (NEGATIVE)
[2023-05-12] MEDS: Lactated Ringers 1,000 ML 100 ML IVCONT (09:09)
--- NOTE | 2023-05-12 11:52 | P.BOP_ITS ---
Brief Operative Note Date of Service: 05/12/23 Pre-op diagnosis: GERD, Screening Post-op diagnosis: other (Small hiatal hernia, GERD, Internal hemorrhoids) Procedure: EGD with biopsies, Colonoscopy to the cecum Surgeon: Ernesto Mcleod MD Anesthesia: MAC Was an Cream Separator Operator used for this Procedure?: No Estimated blood loss (mL): 2.0 Pathology: other (A. Descending duodenum) Condition: stable Disposition: PACU
[2023-05-12 11:54] VITALS: BP 117/69; PULSE 81; RESP 16; TEMP 36.1; O2SAT 97
[2023-05-12 12:09] VITALS: BP 112/79; PULSE 67; RESP 16; TEMP 36.1; O2SAT 96
--- NOTE | 2023-05-12 12:28 | OP_ITS ---
DATE OF SERVICE: 05/12/2023 SURGEON: Ernesto Mcleod MD INDICATIONS: The patient presents for evaluation of gastroesophageal reflux, anemia, and colorectal cancer screening. Full consent has been obtained from her for both procedures, including risks of bleeding and perforation. PREOPERATIVE DIAGNOSIS: POSTOPERATIVE DIAGNOSIS: PROCEDURE PERFORMED: Esophagogastroduodenoscopy with biopsies and colonoscopy to the cecum and terminal ileum. ESTIMATED BLOOD LOSS: COMPLICATIONS: ANESTHESIA: Monitored anesthesia care. ASSISTANTS: SPECIMENS: PREOPERATIVE DIAGNOSES: Gastroesophageal reflux, anemia, colorectal cancer screening, family history of colon polyps. POSTOPERATIVE DIAGNOSES: Gastroesophageal reflux, anemia, colorectal cancer screening, family history of colon polyps, internal hemorrhoids, minimal hiatal hernia. DESCRIPTION OF PROCEDURE: The patient was placed in the left lateral decubitus position. The digital rectal exam revealed no abnormalities. The Olympus video pediatric colonoscope was entered into the rectum and advanced easily to the cecum. Once in the cecum, I did identify normal-appearing cecal pouch with appendiceal orifice and a normal-appearing ileocecal valve. The entire cecum and ileocecal valve appeared normal. The terminal ileum was cannulated and appeared normal. The scope was withdrawn back into the colon. The scope was slowly withdrawn assessing all mucosal surfaces carefully. Preparation was excellent. I did not visualize any sign of polyps, colitis, nor angiodysplasia. There was a minimal amount of internal hemorrhoids noted in the retroflexed position in the rectum. The rectal mucosa appeared normal. The scope was straightened and withdrawn from the patient. She was turned around for the upper endoscopy. The Olympus video gastroscope was passed in the posterior oropharynx and upper esophagus under direct vision. The scope was passed slowly to the distal esophagus. The gastroesophageal junction appeared normal at 37 cm. There was no sign of any esophagitis nor Villegas's mucosa. The scope entered into the stomach. There was a minimal hiatal hernia. The scope was advanced to the pylorus, and the duodenum was cannulated to the descending portion. The duodenum including the bulb appeared normal without mass or ulceration. Biopsies were obtained from the 2nd and 3rd portions of the duodenum. The scope was withdrawn back to the stomach. The gastric antrum and body appeared normal with good peristalsis. The scope was retroflexed visualizing the proximal stomach carefully, which appeared normal, without any sign of mass or ulceration. The scope was straightened and withdrawn back to the esophagus. The esophageal mucosa appeared normal. The scope was withdrawn from the patient. She tolerated the procedures well and was returned to the recovery area in stable condition. IMPRESSION: 1. Internal hemorrhoids. 2. Minimal hiatal hernia. PLAN: The results of the biopsies will be checked. She was advised to resume her iron today. She was advised to continue omeprazole for symptomatic relief of her reflux. Given her family history of colon polyps in her sibling, I would recommend a repeat colonoscopy in 5 years. She will otherwise see me on a p.r.n. basis. MD KATIA Hinton/RAFAELA / [phone] MTDDimple
== END 2023-05-12 12:38 | disposition home or self-care (01) ==
PROVIDERS: Nurse Practitioner; PCP Physician Assistant; Visit Provider Internal Medicine
PROC: (CPT 45378; principal; 2023-05-12 09:30)
DX: Z12.11 Encounter for screening for malignant neoplasm of colon (principal); Z83.719 Family history of colon polyps, unspecified; K64.8 Other hemorrhoids; D64.9 Anemia, unspecified; K21.9 Gastro-esophageal reflux disease without esophagitis; K44.9 Diaphragmatic hernia without obstruction or gangrene; D50.9 Iron deficiency anemia, unspecified; Z79.899 Other long term (current) drug therapy; Z87.891 Personal history of nicotine dependence
CPT/HCPCS: 45378; 43239; 81025; 88305; J2704